=== PATIENT | female | born 1965 | race Caucasian/White ===

== ENCOUNTER 2017-01-07 06:04 | Emergency (ER) | payer OTHER ==
[~2017-01-07] VITALS: Ht 162.6 cm; Wt 100.2 kg
[2017-01-07 06:14] VITALS: BP 137/85; PULSE 78; RESP 16; TEMP 98.2; O2SAT 99
[2017-01-07] MEDS ORDERED: SODIUM CHLOR 0.9% 1000 ML INJ 1,000 ML IV SCH (06:19)
--- NOTE | 2017-01-07 06:23 | PD ---
HPI Chief Complaint: GI Complaint Time Seen by Provider: 06:10 Travel History International Travel<30 days: No Contact w/Intl Traveler<30days: No Traveled to known affect area: No History of Present Illness HPI 51-year-old female complains of abdominal cramping and nausea and diarrhea. Patient states that symptoms started 5 days ago. Patient states the abdominal pain is cramping pain diffuse over the abdomen. Patient denies any pain radiation. Patient denies any fever chills. Patient denies any dysuria or frequency. Patient denies any vaginal discharge or bleeding. Patient denies any recent travel. Patient denies any blood in the stool. Patient states that she had mucus in the stool. Patient denies any recent antibiotic treatment. PFSH Past Medical History ?: Not Social History Tobacco Use: No Allergies-Medications (Allergen,Severity, Reaction): Coded Allergies: No Known Allergies (Unverified , 01/07/17) Reported Meds & Prescriptions Reported Meds & Active Scripts Active Reported Imodium A-D (Loperamide HCl) 2 Mg Cap 2 Mg PO Q6H PRN Review of Systems General / Constitutional: No: Fever Eyes: No: Visual changes HENT: No: Headaches Cardiovascular: No: Chest Pain or Discomfort Respiratory: No: Shortness of Breath Gastrointestinal: Positive: Nausea, Diarrhea, Abdominal Pain Genitourinary: No: Dysuria Musculoskeletal: No: Pain Skin: No Rash Neurologic: No: Weakness Psychiatric: No: Depression Endocrine: No: Polydipsia Hematologic/Lymphatic: No: Easy Bruising Physical Exam Narrative GENERAL: Well-nourished, well-developed patient. SKIN: Warm and dry. HEAD: Normocephalic. EYES: No scleral icterus. No injection or drainage. NECK: Supple, trachea midline. No JVD or lymphadenopathy. CARDIOVASCULAR: Regular rate and rhythm without murmurs, gallops, or rubs. RESPIRATORY: Breath sounds equal bilaterally. No accessory muscle use. GASTROINTESTINAL: Abdomen soft, nondistended. Patient has mild diffuse tenderness over the abdomen. No rebound tenderness. No mass. MUSCULOSKELETAL: No cyanosis, or edema. BACK: Nontender without obvious deformity. No CVA tenderness. Neurologic exam normal. Data Data Last Documented VS Vital Signs Date Time Temp Pulse Resp B/P Pulse Ox O2 Delivery O2 Flow Rate FiO2 01/07/17 07:03 16 01/07/17 06:14 98.2 78 137/85 99 Orders Complete Blood Count With Diff (01/07/17 06:19) Comprehensive Metabolic Panel (01/07/17 06:19) Lipase (01/07/17 06:19) Urinalysis - C+S If Indicated (01/07/17 06:19) Iv Access Insert/Monitor (01/07/17 06:19) Ecg Monitoring (01/07/17 06:19) Oximetry (01/07/17 06:19) Ondansetron Inj (Zofran Inj) (01/07/17 06:30) Pantoprazole Inj (Protonix Inj) (01/07/17 06:30) Sodium Chlor 0.9% 1000 Ml Inj (Ns 1000 M (01/07/17 06:19) Diphenoxylate/Atropine Tab (Lomotil Tab) (01/07/17 06:30) Labs Laboratory Tests Test 01/07/17 06:30 White Blood Count 8.4 TH/MM3 Red Blood Count 5.00 MIL/MM3 Hemoglobin 15.0 GM/DL Hematocrit 43.0 % Mean Corpuscular Volume 86.1 FL Mean Corpuscular Hemoglobin 30.0 PG Mean Corpuscular Hemoglobin 34.8 % Concent Red Cell Distribution Width 12.6 % Platelet Count 182 TH/MM3 Mean Platelet Volume 8.1 FL Neutrophils (%) (Auto) 79.0 % Lymphocytes (%) (Auto) 12.0 % Monocytes (%) (Auto) 6.8 % Eosinophils (%) (Auto) 1.5 % Basophils (%) (Auto) 0.7 % Neutrophils # (Auto) 6.6 TH/MM3 Lymphocytes # (Auto) 1.0 TH/MM3 Monocytes # (Auto) 0.6 TH/MM3 Eosinophils # (Auto) 0.1 TH/MM3 Basophils # (Auto) 0.1 TH/MM3 CBC Comment DIFF FINAL Differential Comment MDM Medical Decision Making Medical Screen Exam Complete: Yes Emergency Medical Condition: Yes Differential Diagnosis Differential diagnosis including gastroenteritis, gastritis, PUD, pancreatitis, cholecystitis, colitis, UTI, pyelonephritis. Narrative Course 51-year-old female with abdominal cramping nausea and diarrhea. Normal saline solution 1 L IV bolus. Protonix 40 mg IV. Zofran 4 mg IV. Lomotil one tablet by mouth given. Lavon Coreas MD Jan 07, 2017 06:23
[2017-01-07] MEDS ORDERED: LOPE7.5C PO (06:25)
[2017-01-07] MEDS ORDERED: DIPHENOXYLATE/ATROPINE 2.5 MG/0.025 MG TAB PO ONE (06:30)
[2017-01-07] MEDS ORDERED: PANTOPRAZOLE SODIUM 40 MG VIAL IVP ONE (06:30)
[2017-01-07] MEDS ORDERED: ONDANSETRON HCL 4 MG/2 ML VIAL IVP ONE (06:30)
[2017-01-07 06:48] LABS: AUTOMATED NEUTROPHIL # 6.6 TH/MM3 (1.8-7.7); BASOPHIL # 0.1 TH/MM3 (0-0.2); BASOPHIL % 0.7 % (0.0-2.0); EOSINOPHIL # 0.1 TH/MM3 (0-0.4); EOSINOPHIL % 1.5 % (0.0-4.0); MEAN CELL VOLUME 86.1 FL (80.0-100.0); MEAN CORPUSCULAR HGB CONC 34.8 % (32.0-36.0); MONO % 6.8 % (0.0-8.0); PLATELET COUNT 182 TH/MM3 (150-450); RED CELL DISTRIBUTION WIDTH 12.6 % (11.6-17.2); WHITE BLOOD COUNT 8.4 TH/MM3 (4.0-11.0)
[2017-01-07 06:54] LABS: HEMO FLAGS DIFF FINAL
[2017-01-07 07:04] VITALS: BP 116/70; PULSE 78; RESP 16; O2SAT 97
[2017-01-07 07:04] LABS: CHLORIDE 108 MEQ/L (98-107); POTASSIUM 3.7 MEQ/L (3.5-5.1); SODIUM (NA) 141 MEQ/L (136-145)
[2017-01-07 07:08] LABS: ANION GAP 8 MEQ/L (5-15); BICARBONATE 24.9 MEQ/L (21.0-32.0); BLOOD UREA NITROGEN 16 MG/DL (7-18)
[2017-01-07 07:11] LABS: ALT (GPT) 40 U/L (10-53); AST (GOT) 14 U/L (15-37); GLOMERULAR FILTRATION RATE 101 ML/MIN (>89)
[2017-01-07 07:12] LABS: TOTAL BILIRUBIN ADULT 0.6 MG/DL (0.2-1.0)
[2017-01-07 07:14] LABS: ALKALINE PHOSPHATASE 58 U/L (45-117)
[2017-01-07] MEDS ORDERED: ZOFR4TAB3 SL (07:53)
[2017-01-07] MEDS ORDERED: LOMO2.5T PO (07:53)
--- NOTE | 2017-01-07 07:54 | PD ---
Data Data Last Documented VS Vital Signs Date Time Temp Pulse Resp B/P Pulse Ox O2 Delivery O2 Flow Rate FiO2 01/07/17 07:04 78 16 116/70 97 Room Air 01/07/17 06:14 98.2 Orders Complete Blood Count With Diff (01/07/17 06:19) Comprehensive Metabolic Panel (01/07/17 06:19) Lipase (01/07/17 06:19) Urinalysis - C+S If Indicated (01/07/17 06:19) Iv Access Insert/Monitor (01/07/17 06:19) Ecg Monitoring (01/07/17 06:19) Oximetry (01/07/17 06:19) Ondansetron Inj (Zofran Inj) (01/07/17 06:30) Pantoprazole Inj (Protonix Inj) (01/07/17 06:30) Sodium Chlor 0.9% 1000 Ml Inj (Ns 1000 M (01/07/17 06:19) Diphenoxylate/Atropine Tab (Lomotil Tab) (01/07/17 06:30) Labs Laboratory Tests Test 01/07/17 06:30 White Blood Count 8.4 TH/MM3 Red Blood Count 5.00 MIL/MM3 Hemoglobin 15.0 GM/DL Hematocrit 43.0 % Mean Corpuscular Volume 86.1 FL Mean Corpuscular Hemoglobin 30.0 PG Mean Corpuscular Hemoglobin 34.8 % Concent Red Cell Distribution Width 12.6 % Platelet Count 182 TH/MM3 Mean Platelet Volume 8.1 FL Neutrophils (%) (Auto) 79.0 % Lymphocytes (%) (Auto) 12.0 % Monocytes (%) (Auto) 6.8 % Eosinophils (%) (Auto) 1.5 % Basophils (%) (Auto) 0.7 % Neutrophils # (Auto) 6.6 TH/MM3 Lymphocytes # (Auto) 1.0 TH/MM3 Monocytes # (Auto) 0.6 TH/MM3 Eosinophils # (Auto) 0.1 TH/MM3 Basophils # (Auto) 0.1 TH/MM3 CBC Comment DIFF FINAL Differential Comment Sodium Level 141 MEQ/L Potassium Level 3.7 MEQ/L Chloride Level 108 MEQ/L Carbon Dioxide Level 24.9 MEQ/L Anion Gap 8 MEQ/L Blood Urea Nitrogen 16 MG/DL Creatinine 0.62 MG/DL Estimat Glomerular Filtration 101 ML/MIN Rate Random Glucose 123 MG/DL Calcium Level 8.0 MG/DL Total Bilirubin 0.6 MG/DL Aspartate Amino Transf 14 U/L (AST/SGOT) Alanine Aminotransferase 40 U/L (ALT/SGPT) Alkaline Phosphatase 58 U/L Total Protein 6.5 GM/DL Albumin 3.3 GM/DL Lipase 76 U/L [facility] Supervised Visit with MEERA: No Narrative Course This is a patient that I took over care of from Dr. Coreas. She has had several days of nausea and diarrhea. Dr. Coreas suspect gastroenteritis. Labs are all reassuring. Patient has a benign abdomen. She'll be discharged home on symptomatic control for gastroenteritis. Diagnosis Primary Impression: Gastroenteritis Patient Instructions: General Instructions Additional Instruction: If you develop lightheadedness, dizziness, persistent vomiting, inability to eat , or severe abdominal pain return to the emergency department. Followup with your primary care physician in 2-3 days if your symptoms have not resolved. Wash your hands aggressively after using the restroom as to not spread your illness to others. Do not return to work until your symptoms have resolved. Take Zofran as needed for nausea. Med/Other Pt SpecificInfo: Prescription(s) given Scripts Ondansetron Odt (Zofran Odt)4 Mg Tab4 Mg SL Q6HR PRN (Nausea/Vomiting) #12 TAB Ref 0 Prov:Rachel De La Garza MD 01/07/17 Diphenoxylate-Atropine (Lomotil)2.5-0.025 Mg Tab1 Tab PO Q6H PRN (DIARRHEA) #12 TAB Ref 0 Prov:Rachel De La Garza MD 01/07/17 Disposition: 01 DISCHARGE HOME Condition: Stable Rachel De La Garza MD Jan 07, 2017 07:54
[2017-01-07] MEDS ORDERED: TRAM50TA PO (08:05)
[2017-01-07 08:07] VITALS: BP 128/81
== END 2017-01-07 08:12 | disposition home or self-care (01) ==
LOC: PHED 06:04
DX: K52.9 Noninfective gastroenteritis and colitis, unspecified (principal)
CPT/HCPCS: 80053; 83690; 85025; 96361; 96374; 96375; 99284; C9113; J2405; J7030